=== PATIENT | male | born 1960 | race Caucasian/White ===

== ENCOUNTER 2017-03-07 02:43 | Inpatient (IN) ==
[2017-03-07] MEDS ORDERED: 0.9 % Sodium Chloride 1,000 ML IVC ONE (02:47)
--- NOTE | 2017-03-07 02:48 | Emergency Department Note ---
Disposition Clinical Impression: Fracture of ribs, multiple, closed, Hypoxia Disposition: Admitted As Inpatient Condition: Undetermined General Adult HPI - General Chief complaint: ED Trauma Stated complaint: trama/right rib fx/abd tender to palp Time Seen by Provider: 03/07/17 02:46 - Related Data Allergies Allergy/AdvReac Type Severity Reaction Status Date / Time No Known Allergies Allergy Verified 03/07/17 03:22 Course Vital Signs Temperature 98.7 F 03/07/17 03:00 Pulse Rate 119 03/07/17 03:00 Respiratory Rate 28 03/07/17 03:00 Blood Pressure 126/93 03/07/17 03:00 O2 Sat by Pulse Oximetry 94 03/07/17 03:00 Temperature 98.7 F 03/07/17 03:00 Pulse Rate 119 03/07/17 03:00 Respiratory Rate 28 03/07/17 03:00 Blood Pressure 126/93 03/07/17 03:00 O2 Sat by Pulse Oximetry 94 03/07/17 03:00 Oxygen Delivery Oxygen Delivery Nasal Cannula Medical Decision Making - Lab Data Result diagrams: 03/07/17 03:09 03/07/17 03:09 Lab Results 03/07/17 03/07/17 Range/Units 03:09 03:09 WBC 9.6 (4.3-11.1) K/mcL RBC 5.18 (4.19-5.50) M/mcL Hgb 14.9 (12.9-16.9) g/dL Hct 45.1 (37.5-50.1) % MCV 87.1 (83.0-100.0) fL MCH 28.8 (28.0-33.3) pg MCHC 33.0 (31.6-35.5) g/dL RDW 14.0 (11.5-14.5) % Plt Count 209 (140-400) K/mcL MPV 10.5 (9.4-12.4) fL Immature Gran % 0.6 (0-4) % Seg Neutrophils % 71.1 % Lymphocytes % 16.2 % Monocytes % 9.3 % Eosinophils % 2.4 % Basophils % 0.4 % Neutrophils # 6.8 (1.6-8.9) K/mcL Lymphocytes # 1.6 (0.6-4.6) K/mcL Monocytes # 0.9 (0.0-1.3) K/mcL Eosinophils # 0.2 (0.0-0.6) K/mcL Basophils # 0.0 (0.0-0.2) K/mcL Sodium 137 (136-145) mEq/L Potassium 3.9 (3.5-4.5) mEq/L Chloride 105 (98-109) mEq/L Carbon Dioxide 23 (19-29) mEq/L BUN 16 (8-26) mg/dL Creatinine 0.93 (0.72-1.25) mg/dL Est GFR ( Amer) > 60 (> 60) Est GFR (Non-Af Amer) > 60 (> 60) BUN/Creatinine Ratio 17 (6-26) Glucose 121 H (70-99) mg/dL Calculated Osmolality 286 (280-300) Calcium 9.0 (8.6-10.8) mg/dL Critical Care Time Critical Care Time: Yes Total Critical Care Time: 30 Attestation: Patient presented hypoxic with chest wall pain. When he ambulated his pulse ox dropped to 74% requiring supplemental oxygen. Attestation Statement - Attestation Attestation: I examined this patient and my medical decision-making was reviewed with the [facility]/PA/Advanced Practice Nurse/Resident Physician. I agree with the documented findings, disposition and treatment plan as described except to the extent set forth below. [id number] time provided Patient presents by EMS with chest wall pain and dyspnea. He was recently diagnosed with rib fractures secondary to a blunt torso injury. Plan of care and management discussed by me with resident physician
--- NOTE | 2017-03-07 02:53 | Emergency Department Note ---
Disposition Clinical Impression: Hypoxia Fracture of ribs, multiple, closed Qualifiers: Encounter type: subsequent encounter Laterality: right Fracture healing: with routine healing Qualified Code(s): S22.41XD - Multiple fractures of ribs, right side, subsequent encounter for fracture with routine healing Disposition: Admitted As Inpatient Condition: Undetermined Forms: ED Satisfaction Letter Time of Disposition: 04:49 Trauma HPI - General Chief Complaint: ED Trauma Stated Complaint: trama/right rib fx/abd tender to palp Time Seen by Provider: 03/07/17 02:46 Source: patient Mode of arrival: EMS Limitations: no limitations Nursing Notes Reviewed: Yes Vital Signs Reviewed: Yes - History of Present Illness HPI Narrative: 56-year-old male who was recently patent against a trailer by a horse with injury to torso 2 days ago who went to outside emergency department and diagnosed with right-sided rib fractures arrives to the emergency department this evening complaining of worsening difficulty breathing, chest pain, abdominal pain with stanchion compared to normal. The patient states that when EMS arrived he was mildly hypoxic with an O2 sat of 86%. He states that the pain has worsened despite taking Percocet. The patient denies any other complaints at this time including paresthesias, numbness, tingling, neck pain, headaches. Pt Subjective Complaint: injury Onset (ago): day(s) (2) Loss of Consciousness: no Location of injury: chest, abdomen Pain Severity: moderate Pain Scale: 8 Context: other (Pinned by horse) Associated symptoms: Reports: abdominal pain, shortness of breath Treatments prior to arrival: IV, oxygen - Related Data Allergies Allergy/AdvReac Type Severity Reaction Status Date / Time No Known Allergies Allergy Verified 03/07/17 03:22 All systems ED: reviewed and negative except as stated. Constitutional: Denies: fever, chills, weakness, weight change Eyes: Reports: as per HPI ENT ED: Denies: ear pain, throat pain, dental pain, hearing loss, epistaxis, congestion, dysphagia Cardiovascular: Reports: chest pain. Denies: palpitations, dyspnea on exertion , orthopnea Respiratory: Reports: dyspnea. Denies: cough, wheezes, hemoptysis, stridor Gastrointestinal: Reports: abdominal pain. Denies: nausea, vomiting, diarrhea, constipation, hematemesis, melena, hematochezia Genitourinary: Denies: urgency, dysuria, frequency, hematuria Musculoskeletal: Reports: back pain, arthralgia. Denies: neck pain, myalgia Integumentary: Denies: rash, abrasion, lesions Neurological: Denies: headache, weakness, numbness, paresthesias, confusion, abnormal gait, vertigo Past Medical History - Past Medical History Attestation: Yes The following information was validated with the patient. Source: patient Medical history: Reports: no medical history Surgical history: Reports: no surgical history Psychiatric history: Reports: no psych history - Social History Smoking Status: Smoker, status unknown Alcohol use: Reports: none Drug use: Reports: none Physical Exam - General Limitations: no limitations General appearance: alert, other (In severe pain) - Eye Eye exam: Present: normal appearance, PERRL, EOMI - ENT ENT exam: normal exam, normal oropharynx, mucous membranes moist - Neck Neck exam: Present: normal inspection, full ROM, trachea midline - Chest Chest inspection: Present: normal inspection, symmetric chest wall rise, tenderness (Right chest wall) - Respiratory Respiratory exam: Present: other (Right sided diminished breath sounds) - Cardiovascular Cardiovascular exam: Present: regular rate, normal rhythm, normal heart sounds - Abdominal Exam Abdominal exam: Present: tenderness, distention, diminished bowel sounds. Absent: guarding, rebound, rigidity - Extremities Exam Extremities exam: Present: normal inspection, full ROM. Absent: tenderness, pedal edema - Back Exam Back exam: Present: normal inspection, full ROM. Absent: tenderness - Neurological Exam Neurological exam: Present: alert, oriented X3 - Skin Skin exam: Present: warm, dry, intact, normal color Trauma - [facility] Narrative Medical decision making narrative: Patient workup here in the emergency department demonstrates redemonstration of right-sided rib fractures. The patient has no other acute injuries noted. Upon ambulation around the emergency department the patient was symptomatically having difficulty breathing and was at 93% on room air. Upon sitting down on the bed the patient dropped to 74%. The patient was also having difficulties controlling his pain. Patient accepted by hospitalist. Patient agrees to plan. - Lab Data Lab results reviewed: Yes I reviewed the patient's lab results. Result diagrams: 03/07/17 03:09 03/07/17 03:09 Lab Results 03/07/17 03/07/17 Range/Units 03:09 03:09 WBC 9.6 (4.3-11.1) K/mcL RBC 5.18 (4.19-5.50) M/mcL Hgb 14.9 (12.9-16.9) g/dL Hct 45.1 (37.5-50.1) % MCV 87.1 (83.0-100.0) fL MCH 28.8 (28.0-33.3) pg MCHC 33.0 (31.6-35.5) g/dL RDW 14.0 (11.5-14.5) % Plt Count 209 (140-400) K/mcL MPV 10.5 (9.4-12.4) fL Immature Gran % 0.6 (0-4) % Seg Neutrophils % 71.1 % Lymphocytes % 16.2 % Monocytes % 9.3 % Eosinophils % 2.4 % Basophils % 0.4 % Neutrophils # 6.8 (1.6-8.9) K/mcL Lymphocytes # 1.6 (0.6-4.6) K/mcL Monocytes # 0.9 (0.0-1.3) K/mcL Eosinophils # 0.2 (0.0-0.6) K/mcL Basophils # 0.0 (0.0-0.2) K/mcL Sodium 137 (136-145) mEq/L Potassium 3.9 (3.5-4.5) mEq/L Chloride 105 (98-109) mEq/L Carbon Dioxide 23 (19-29) mEq/L BUN 16 (8-26) mg/dL Creatinine 0.93 (0.72-1.25) mg/dL Est GFR ( Amer) > 60 (> 60) Est GFR (Non-Af Amer) > 60 (> 60) BUN/Creatinine Ratio 17 (6-26) Glucose 121 H (70-99) mg/dL Calculated Osmolality 286 (280-300) Calcium 9.0 (8.6-10.8) mg/dL - Radiology Data Radiology results reviewed: Yes I reviewed the patient's radiology results.
[2017-03-07] MEDS: *HR* HYDROmorphone (PF) 1 MG/ML SYRINGE IVP ONE (03:01)
[2017-03-07 03:15] LABS: Basophils % 0.4 %; Eosinophils # 0.2 K/mcL (0.0-0.6); Eosinophils % 2.4 %; Hematocrit 45.1 % (37.5-50.1); Hemoglobin 14.9 g/dL (12.9-16.9); Immature Granulocytes % 0.6 % (0-4); Lymphocytes # 1.6 K/mcL (0.6-4.6); Lymphocytes % 16.2 %; Mean Corpuscular Hemoglobin 28.8 pg (28.0-33.3); Mean Corpuscular Volume 87.1 fL (83.0-100.0); Mean Platelet Volume 10.5 fL (9.4-12.4); Monocytes # 0.9 K/mcL (0.0-1.3); Monocytes % 9.3 %; Neutrophils # 6.8 K/mcL (1.6-8.9); Platelet Count 209 K/mcL (140-400); Red Blood Count 5.18 M/mcL (4.19-5.50); Segmented Neutrophils % 71.1 %
[2017-03-07 03:27] LABS: BUN/Creatinine Ratio 17 (6-26); Blood Urea Nitrogen 16 mg/dL (8-26); Carbon Dioxide 23 mEq/L (19-29); Chloride 105 mEq/L (98-109); Glucose 121 mg/dL (70-99); Osmolality,Calculated 286 (280-300); Potassium 3.9 mEq/L (3.5-4.5); Sodium 137 mEq/L (136-145); eGFR For African Americans > 60 (> 60); eGFR For Non-African Americans > 60 (> 60)
[2017-03-07] MEDS ORDERED: *HR* LORazepam 2 MG/ML VIAL IVP ONE (04:46)
[2017-03-07] MEDS ORDERED: Acetaminophen 325 MG TABLET PO PRN (07:36)
[2017-03-07] MEDS ORDERED: Ondansetron 4 MG/2 ML VIAL IVP PRN (07:36)
[2017-03-07] MEDS ORDERED: Naloxone 0.4 MG/ML INJ IVP PRN (07:36)
[2017-03-07] MEDS ORDERED: Levalbuterol Neb 0.63 MG/3 ML IH PRN (07:41)
--- NOTE | 2017-03-07 07:55 | Internal Med History&Physical ---
Date of Encounter: 03/07/17 Time of Encounter: 07:30 Assessment and Plan (1) Fracture of ribs, multiple, closed Current visit: Yes Status: Acute Patient had an injury to his chest 3 days ago. He was working on a horse trailer when the horse stepped backwards, hit him and pushed him against the trailer. He immediately felt a very severe chest pain and went to the ED. He was found to have right-sided rib fractures and sent home on Percocet. His chest pain did not improve with Percocet and was so severe that he came to our ED. CT chest showed multiple acute bilateral rib fractures without pneumothorax , subtle fat stranding of the anterior mediastinal fat, could be venous hemorrhage. Patient is complaining of severe right-sided chest pain anytime he moves and mild left-sided chest pain. mild shortness of breath. no cough. no abdominal pain. no urinary complains. no headache. no dizziness. no syncope. Continue pain control with IV morphine, and flexeril. Qualifiers: Encounter type: subsequent encounter Laterality: right Fracture healing: with routine healing Qualified Code(s): S22.41XD - Multiple fractures of ribs , right side, subsequent encounter for fracture with routine healing (2) Hypoxia Current visit: Yes Status: Acute secondary to poor inspiratory effort due to severe pain. start duonebs, budesonide and mucinex. wean off oxygen to keep SaO2 >92% (3) COPD (chronic obstructive pulmonary disease) Current visit: Yes Status: Chronic plan as above Qualifiers: COPD type: chronic bronchitis Chronic bronchitis type: simple Qualified Code(s): J41.0 - Simple chronic bronchitis (4) HTN (hypertension) Current visit: Yes Status: Acute pain control. resume home meds Qualifiers: Hypertension type: essential hypertension Qualified Code(s): I10 - Essential (primary) hypertension Internal Medicine - H&P: HPI Chief complaint: severe chest pain for 3 days Admitted From: Home Plans for Post Hospital Care: Home History of present illness: Mr. 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 Patient was working on a horse trailer when the horse stepped backwards, hit him and pushed him against the trailer. He immediately felt a very severe chest pain and went to the ED, he was found to have right-sided rib fractures and sent home on Percocet. His chest pain did not improve with Percocet and was so severe that he came to our ED. CT chest showed multiple acute bilateral rib fractures without pneumothorax, subtle fat stranding of the anterior mediastinal fat, could be venous hemorrhage. Patient is complaining of severe right-sided chest pain anytime he moves and mild left-sided chest pain. mild shortness of breath. no cough. no abdominal pain. no urinary complains. no headache. no dizziness. no syncope. Past Med Surg Social Fam HX - Past Medical History Medical history: no medical history Psychiatric history: no psych history - Past Surgical History Surgical History: no surgical history - Social History Smoking Status: Smoker, status unknown Smokeless Tobacco Status: No Alcohol use: none Drug use: none - Family History Father Hx Family Cardiac Disorders: Yes (htn) Internal Medicine - H&P: Meds Allergies No Known Allergies Allergy (Verified 03/07/17 03:22) All Systems PM: A 10-system review of systems was performed and is negative for pertinent findings except as documented above in the HPI. - Constitutional Vitals: Temp Pulse Resp BP Pulse Ox 98.1 F 105 16 159/91 96 03/07/17 07:32 03/07/17 07:32 03/07/17 07:32 03/07/17 07:32 03/07/17 07:32 General appearance: Present: cooperative, A&O X 3, pleasant, no acute distress, answers questions appropriately - Neck Neck exam general surgery: Present: supple, trachea midline. Absent: lymphadenopathy - Respiratory Respiratory exam: Present: decreased breath sounds (at bases), wheezes (at right sided bases) Additional comments: tenderness to palpation at left upper chest area and right sided chest site - Cardiovascular Cardiovascular exam: Present: RRR - GI/Abdominal GI/Abdominal exam: Present: normal bowel sounds, soft. Absent: distended, tenderness - Extremities Exam Extremities exam: Absent: pedal edema - Back Exam Back exam: Absent: CVA tenderness (L), CVA tenderness (R) - Neurological Exam Neurological exam: Present: alert, oriented X3, no focal deficits, strengths equal and symetr throughout. Absent: facial droop, speech deficit - Skin Skin exam: Absent: rash Internal Med - H&P Results - Labs CBC & Chem 7: 03/07/17 03:09 03/07/17 03:09
[2017-03-07] MEDS: *HR* Morphine 2 MG/ML SYRINGE IVP PRN ×3 (08:52→17:40)
[2017-03-07] MEDS ORDERED: Albuterol 2.5 MG/3 ML NEBULIZER IH PRN (09:00)
[2017-03-07] MEDS: Nicotine 7 MG PATCH.TD24 TD SCH (10:08)
[2017-03-07] MEDS: *HR* HYDROcodone/Acet 5/325 mg TABLET PO PRN ×2 (10:09→15:28)
[2017-03-07] MEDS: Budesonide Neb 0.25 MG/2 ML IH SCH ×2 (11:23→22:38)
[2017-03-07] MEDS: Ipratropium/Albuterol Neb 3 ML IH SCH ×3 (11:23→22:38)
[2017-03-07] MEDS ORDERED: Perflutren Lipid Microsphere 1.3 ML in 0.9 % Sodium Chloride 8.7 ML IVP ONE (19:21)
[2017-03-07] MEDS: *HR* HYDROmorphone (PF) 1 MG/ML SYRINGE IVP PRN ×2 (21:07→23:43)
[2017-03-08] MEDS: *HR* HYDROmorphone (PF) 1 MG/ML SYRINGE IVP PRN ×4 (03:48→20:28)
[2017-03-08] MEDS: Ipratropium/Albuterol Neb 3 ML IH SCH ×2 (04:05→10:22)
[2017-03-08 06:25] LABS: Basophils % 0.4 %; Eosinophils # 0.2 K/mcL (0.0-0.6); Eosinophils % 2.7 %; Hematocrit 43.2 % (37.5-50.1); Hemoglobin 14.4 g/dL (12.9-16.9); Immature Granulocytes % 0.9 % (0-4); Immature Platelets 5.8 % (1.1-6.1); Lymphocytes # 1.5 K/mcL (0.6-4.6); Lymphocytes % 19.7 %; Mean Corpuscular HGB Conc 33.3 g/dL (31.6-35.5); Mean Corpuscular Hemoglobin 28.6 pg (28.0-33.3); Mean Corpuscular Volume 85.9 fL (83.0-100.0); Mean Platelet Volume 10.4 fL (9.4-12.4); Monocytes # 0.6 K/mcL (0.0-1.3); Monocytes % 8.2 %; Neutrophils # 5.3 K/mcL (1.6-8.9); Platelet Count 209 K/mcL (140-400); Red Blood Count 5.03 M/mcL (4.19-5.50); Red Cell Distribution Width 13.8 % (11.5-14.5); Segmented Neutrophils % 68.1 %
[2017-03-08 06:29] LABS: INR 1.1; Prothrombin Time 11.7 Seconds (9.4-12.1)
[2017-03-08 06:32] LABS: Activated Partial Thrombo Time 30.5 Seconds (26.0-36.0)
[2017-03-08 06:48] LABS: BUN/Creatinine Ratio 12 (6-26); Blood Urea Nitrogen 10 mg/dL (8-26); Calcium 9.1 mg/dL (8.6-10.8); Carbon Dioxide 23 mEq/L (19-29); Chloride 102 mEq/L (98-109); Glucose 112 mg/dL (70-99); Magnesium 1.6 mg/dL (1.6-2.6); Osmolality,Calculated 276 (280-300); Phosphorous 3.5 mg/dL (2.3-4.7); Sodium 133 mEq/L (136-145); eGFR For African Americans > 60 (> 60); eGFR For Non-African Americans > 60 (> 60)
[2017-03-08] MEDS: Nicotine 7 MG PATCH.TD24 TD SCH (07:54)
[2017-03-08] MEDS ORDERED: Furosemide 40 MG/4 ML VIAL IVP ONE (08:55)
--- NOTE | 2017-03-08 09:01 | Internal Med Progress Note ---
Date of Encounter: 03/08/17 Time of Encounter: 08:30 - Assessment and plan (1) Fracture of ribs, multiple, closed Current Visit: Yes Status: Acute Assessment and plan: Patient had an injury to his chest on 03/04. He was working on a horse trailer when the horse stepped backwards, hit him and pushed him against the trailer. He immediately felt a very severe chest pain and went to the ED. He was found to have right-sided rib fractures and sent home on Percocet. His chest pain did not improve with Percocet and was so severe that he came to our ED. CT chest showed multiple acute bilateral rib fractures without pneumothorax, subtle fat stranding of the anterior mediastinal fat, could be venous hemorrhage. 03/08: Still complaining of severe right-sided chest pain anytime he moves. mild shortness of breath. requiring IV dilaudid. Add morphine SR. stop norco. add oxycodone. continue flexeril. Qualifiers: Encounter type: subsequent encounter Laterality: right Fracture healing: with routine healing Qualified Code(s): S22.41XD - Multiple fractures of ribs , right side, subsequent encounter for fracture with routine healing (2) Acute respiratory failure with hypoxia Current Visit: Yes Status: Acute Assessment and plan: secondary to poor inspiratory effort due to severe pain. requiring 3L NC. nebs. oxygen supplementation. better control of pain. (3) COPD (chronic obstructive pulmonary disease) Current Visit: Yes Status: Chronic Assessment and plan: nebs Qualifiers: COPD type: chronic bronchitis Chronic bronchitis type: simple Qualified Code(s): J41.0 - Simple chronic bronchitis (4) HTN (hypertension) Current Visit: Yes Status: Chronic Assessment and plan: BP better controlled. Qualifiers: Hypertension type: essential hypertension Qualified Code(s): I10 - Essential (primary) hypertension - Subjective Interval history: right-sided chest pain has not changed in intensity, dilaudid is helping with pain. - Constitutional Vitals: Temp Pulse Resp BP Pulse Ox 97.7 F 102 15 143/83 88 03/08/17 07:42 03/08/17 07:42 03/08/17 07:42 03/08/17 07:42 03/08/17 08:51 General appearance: Present: cooperative, A&O X 3, pleasant, no acute distress, answers questions appropriately - Neck Neck exam general surgery: Present: supple, trachea midline. Absent: lymphadenopathy - Respiratory Respiratory exam: Present: decreased breath sounds (at the bases), rhonchi - Cardiovascular Cardiovascular exam: Present: RRR - GI/Abdominal GI/Abdominal exam: Present: normal bowel sounds, soft. Absent: distended, tenderness - Extremities Exam Extremities exam: Present: pedal edema (1+ Le edema up to the knees) - Back Exam Back exam: Absent: CVA tenderness (L), CVA tenderness (R) - Neurological Exam Neurological exam: Present: alert, oriented X3, no focal deficits, strengths equal and symetr throughout. Absent: pronater drift, facial droop, speech deficit - Skin Skin exam: Absent: rash Internal Medicine: Result - Labs CBC & Chem 7: 03/08/17 06:11 03/08/17 06:11 Labs: Short CBC 03/08/17 Range/Units 06:11 WBC 7.7 (4.3-11.1) K/mcL Hgb 14.4 (12.9-16.9) g/dL Hct 43.2 (37.5-50.1) % Plt Count 209 (140-400) K/mcL Neutrophils # 5.3 (1.6-8.9) K/mcL BMP 03/08/17 06:11 Sodium 133 L Potassium 4.0 Chloride 102 Carbon Dioxide 23 BUN 10 Creatinine 0.84 Glucose 112 H Calcium 9.1 - ABG Interpretation ABG results: PT/INR, D-dimer PT 11.7 Seconds (9.4-12.1) 03/08/17 06:11 Consult Discharge Plan - Plan Referrals: Mauro Shrestha MD [Primary Care Provider] -
[2017-03-08] MEDS: Budesonide Neb 0.25 MG/2 ML IH SCH ×2 (10:22→22:31)
[2017-03-08] MEDS: *HR* HYDROcodone/Acet 5/325 mg TABLET PO PRN (13:54)
[2017-03-08] MEDS ORDERED: *HR* HYDROmorphone (PF) 1 MG/ML SYRINGE IVP ONE (14:13)
[2017-03-08] MEDS ORDERED: *HR* Metoprolol 5 MG/5 ML VIAL IVP ONE ×2 (14:14→14:15)
[2017-03-08] MEDS: *HR* HYDROmorphone (PF) 1 MG/ML SYRINGE IVP ONE (14:15)
[2017-03-08] MEDS ORDERED: Levalbuterol Neb 0.63 MG/3 ML IH PRN (14:24)
--- NOTE | 2017-03-08 14:46 | Event Note ---
Date of Encounter: 03/08/17 Time of Encounter: 14:41 Critical care time first hour- time spent 30 min Called by nurse because of tachycardia. Patient states he went to the bathroom and he has severe shooting pain at his right chest. mild shortness of breath. stat EKG showed sinus tachcyardia HR 126. BP 141/97. chest decrease air entry in right base. heart is regular, tachycardic. Given stat IV dilaudid 1 mg, 2.5 mg IV lopressor. A/p 1. pain secondary to rib fracture. 2. sinus tachycardia due to pain. echo shows LVEF 55-65%, normal pericardium. - stop albuterol nebs. start Xopenex nebs. - add lopressor - add morphine SR and oxycodone prn
[2017-03-08] MEDS: Ipratropium Neb 0.5 MG NEBULIZER IH SCH ×2 (15:42→22:31)
[2017-03-08] MEDS: Levalbuterol Neb 0.63 MG/3 ML IH SCH ×2 (15:42→22:31)
[2017-03-08] MEDS: *HR* Morphine Sulfate SR (12 HR) 15 MG TABLET.ER PO SCH ×2 (16:02→16:15)
[2017-03-08] MEDS: *HR* Heparin 5,000 UNIT/ML VIAL SQ SCH ×2 (16:02→16:14)
[2017-03-08] MEDS: *HR* OxyCODONE Immed Rel 5 MG TABLET PO PRN (17:16)
[2017-03-09] MEDS: *HR* OxyCODONE Immed Rel 5 MG TABLET PO PRN ×2 (00:08→23:07)
[2017-03-09] MEDS: Ipratropium Neb 0.5 MG NEBULIZER IH SCH ×4 (04:10→22:44)
[2017-03-09] MEDS: Levalbuterol Neb 0.63 MG/3 ML IH SCH ×4 (04:10→22:44)
[2017-03-09] MEDS: *HR* HYDROmorphone (PF) 1 MG/ML SYRINGE IVP PRN ×4 (04:24→20:45)
[2017-03-09 05:47] LABS: Basophils % 0.5 %; Eosinophils # 0.3 K/mcL (0.0-0.6); Eosinophils % 3.9 %; Hematocrit 44.5 % (37.5-50.1); Hemoglobin 14.7 g/dL (12.9-16.9); Immature Granulocytes % 0.7 % (0-4); Lymphocytes # 1.5 K/mcL (0.6-4.6); Lymphocytes % 19.5 %; Mean Corpuscular Volume 87.8 fL (83.0-100.0); Monocytes # 0.6 K/mcL (0.0-1.3); Monocytes % 8.4 %; Neutrophils # 5.1 K/mcL (1.6-8.9); Platelet Count 212 K/mcL (140-400); Red Blood Count 5.07 M/mcL (4.19-5.50); Red Cell Distribution Width 13.8 % (11.5-14.5)
[2017-03-09] MEDS ORDERED: *HR* Enoxaparin 40 MG/0.4 ML SYRINGE SQ SCH (06:00)
[2017-03-09 06:07] LABS: BUN/Creatinine Ratio 14 (6-26); Blood Urea Nitrogen 13 mg/dL (8-26); Calcium 9.3 mg/dL (8.6-10.8); Carbon Dioxide 26 mEq/L (19-29); Chloride 100 mEq/L (98-109); Glucose 103 mg/dL (70-99); Magnesium 1.7 mg/dL (1.6-2.6); Osmolality,Calculated 280 (280-300); Potassium 3.9 mEq/L (3.5-4.5); Sodium 135 mEq/L (136-145); eGFR For African Americans > 60 (> 60); eGFR For Non-African Americans > 60 (> 60)
[2017-03-09] MEDS: *HR* Heparin 5,000 UNIT/ML VIAL SQ SCH ×2 (06:53→18:28)
[2017-03-09] MEDS: *HR* Morphine Sulfate SR (12 HR) 15 MG TABLET.ER PO SCH ×2 (06:54→18:29)
[2017-03-09] MEDS: Nicotine 7 MG PATCH.TD24 TD SCH (08:16)
[2017-03-09] MEDS: Budesonide Neb 0.25 MG/2 ML IH SCH ×2 (08:59→22:44)
--- NOTE | 2017-03-09 21:53 | Internal Med Progress Note ---
Date of Encounter: 03/09/17 Time of Encounter: 13:45 - Assessment and plan (1) Fracture of ribs, multiple, closed Current Visit: Yes Status: Acute Assessment and plan: Patient had an injury to his chest on 03/04. He was working on a horse trailer when the horse stepped backwards, hit him and pushed him against the trailer. He immediately felt a very severe chest pain and went to the ED. He was found to have right-sided rib fractures and sent home on Percocet. His chest pain did not improve with Percocet and was so severe that he came to our ED. CT chest showed multiple acute bilateral rib fractures without pneumothorax, subtle fat stranding of the anterior mediastinal fat, could be venous hemorrhage. 03/09: right-sided chest pain has improved slighly, mild shortness of breath. requiring IV dilaudid. continue morphine SR, oxycodone and flexeril. Qualifiers: Encounter type: subsequent encounter Laterality: right Fracture healing: with routine healing Qualified Code(s): S22.41XD - Multiple fractures of ribs , right side, subsequent encounter for fracture with routine healing (2) Acute respiratory failure with hypoxia Current Visit: Yes Status: Acute Assessment and plan: secondary to poor inspiratory effort due to severe pain. requiring 3L NC. unable to ambulate without oxygen supplementation. continue nebs, better control of pain and incentive spirometer. (3) COPD (chronic obstructive pulmonary disease) Current Visit: Yes Status: Chronic Assessment and plan: nebs. Qualifiers: COPD type: chronic bronchitis Chronic bronchitis type: simple Qualified Code(s): J41.0 - Simple chronic bronchitis (4) HTN (hypertension) Current Visit: Yes Status: Chronic Assessment and plan: BP is better controlled. Qualifiers: Hypertension type: essential hypertension Qualified Code(s): I10 - Essential (primary) hypertension - Subjective Interval history: right-sided chest pain has improved mildly, dilaudid is helping with pain. - Constitutional Vitals: Temp Pulse Resp BP Pulse Ox 97.8 F 110 16 105/75 93 03/09/17 18:36 03/09/17 18:36 03/09/17 18:36 03/09/17 18:36 03/09/17 18:36 General appearance: Present: cooperative, A&O X 3, pleasant, no acute distress, answers questions appropriately - Neck Neck exam general surgery: Present: lymphadenopathy, supple, trachea midline - Respiratory Respiratory exam: Present: decreased breath sounds (at lung bases) - Cardiovascular Cardiovascular exam: Present: RRR - GI/Abdominal GI/Abdominal exam: Present: normal bowel sounds, soft. Absent: distended, tenderness - Extremities Exam Extremities exam: Present: pedal edema - Back Exam Back exam: Absent: CVA tenderness (L), CVA tenderness (R) - Neurological Exam Neurological exam: Present: alert, normal gait, oriented X3, no focal deficits, strengths equal and symetr throughout. Absent: pronater drift, facial droop, speech deficit - Skin Skin exam: Absent: rash Internal Medicine: Result - Labs CBC & Chem 7: 03/09/17 05:12 03/09/17 05:12 Labs: Short CBC 03/09/17 Range/Units 05:12 WBC 7.6 (4.3-11.1) K/mcL Hgb 14.7 (12.9-16.9) g/dL Hct 44.5 (37.5-50.1) % Plt Count 212 (140-400) K/mcL Neutrophils # 5.1 (1.6-8.9) K/mcL BMP 03/09/17 05:12 Sodium 135 L Potassium 3.9 Chloride 100 Carbon Dioxide 26 BUN 13 Creatinine 0.90 Glucose 103 H Calcium 9.3 - ABG Interpretation ABG results: PT/INR, D-dimer PT 11.7 Seconds (9.4-12.1) 03/08/17 06:11 Consult Discharge Plan - Plan Referrals: Mauro Shrestha MD [Primary Care Provider] -
[2017-03-10] MEDS: *HR* HYDROmorphone (PF) 1 MG/ML SYRINGE IVP PRN ×4 (02:31→23:01)
[2017-03-10] MEDS: Levalbuterol Neb 0.63 MG/3 ML IH SCH ×4 (04:39→22:15)
[2017-03-10] MEDS: Ipratropium Neb 0.5 MG NEBULIZER IH SCH ×4 (04:39→22:15)
[2017-03-10 04:53] LABS: Basophils # 0.1 K/mcL (0.0-0.2); Basophils % 0.8 %; Eosinophils # 0.3 K/mcL (0.0-0.6); Eosinophils % 4.7 %; Hematocrit 42.9 % (37.5-50.1); Hemoglobin 14.2 g/dL (12.9-16.9); Immature Granulocytes % 0.5 % (0-4); Lymphocytes # 1.8 K/mcL (0.6-4.6); Lymphocytes % 28.1 %; Mean Corpuscular HGB Conc 33.1 g/dL (31.6-35.5); Mean Corpuscular Hemoglobin 28.5 pg (28.0-33.3); Mean Platelet Volume 10.6 fL (9.4-12.4); Monocytes # 0.7 K/mcL (0.0-1.3); Monocytes % 10.2 %; Neutrophils # 3.6 K/mcL (1.6-8.9); Platelet Count 229 K/mcL (140-400); Red Blood Count 4.99 M/mcL (4.19-5.50); Red Cell Distribution Width 13.5 % (11.5-14.5); Segmented Neutrophils % 55.7 %
[2017-03-10 05:05] LABS: BUN/Creatinine Ratio 15 (6-26); Blood Urea Nitrogen 13 mg/dL (8-26); Calcium 9.4 mg/dL (8.6-10.8); Carbon Dioxide 25 mEq/L (19-29); Chloride 102 mEq/L (98-109); Glucose 100 mg/dL (70-99); Magnesium 1.8 mg/dL (1.6-2.6); Osmolality,Calculated 282 (280-300); Potassium 4.3 mEq/L (3.5-4.5); Sodium 136 mEq/L (136-145); eGFR For African Americans > 60 (> 60); eGFR For Non-African Americans > 60 (> 60)
[2017-03-10] MEDS: *HR* Morphine Sulfate SR (12 HR) 15 MG TABLET.ER PO SCH ×2 (06:12→20:47)
[2017-03-10] MEDS: *HR* Heparin 5,000 UNIT/ML VIAL SQ SCH ×2 (06:12→20:47)
[2017-03-10] MEDS: *HR* OxyCODONE Immed Rel 5 MG TABLET PO PRN (08:27)
[2017-03-10] MEDS: Nicotine 7 MG PATCH.TD24 TD SCH (08:27)
[2017-03-10] MEDS: Furosemide 40 MG TABLET PO SCH ×2 (09:56→16:09)
[2017-03-10] MEDS: Budesonide Neb 0.25 MG/2 ML IH SCH ×2 (11:01→22:15)
--- NOTE | 2017-03-10 11:56 | Internal Med Progress Note ---
Date of Encounter: 03/10/17 Time of Encounter: 08:00 - Assessment and plan (1) Fracture of ribs, multiple, closed Current Visit: Yes Status: Acute Assessment and plan: Patient had an injury to his chest on 03/04. He was working on a horse trailer when the horse stepped backwards, hit him and pushed him against the trailer. He immediately felt a very severe chest pain and went to the ED. He was found to have right-sided rib fractures and sent home on Percocet. His chest pain did not improve with Percocet and was so severe that he came to our ED. CT chest showed multiple acute bilateral rib fractures without pneumothorax, subtle fat stranding of the anterior mediastinal fat, could be venous hemorrhage. 03/10: slowly improving. right-sided chest pain has improved. he is still requiring oxygen at exertion and IV dilaudid. continue morphine SR, oxycodone and flexeril. check cxr Qualifiers: Encounter type: subsequent encounter Laterality: right Fracture healing: with routine healing Qualified Code(s): S22.41XD - Multiple fractures of ribs , right side, subsequent encounter for fracture with routine healing (2) Acute respiratory failure with hypoxia Current Visit: Yes Status: Acute Assessment and plan: secondary to poor inspiratory effort due to severe pain. requiring 3L NC. unable to ambulate without oxygen supplementation. continue nebs, better control of pain and incentive spirometer. (3) COPD (chronic obstructive pulmonary disease) Current Visit: Yes Status: Chronic Assessment and plan: nebs. Qualifiers: COPD type: chronic bronchitis Chronic bronchitis type: simple Qualified Code(s): J41.0 - Simple chronic bronchitis (4) HTN (hypertension) Current Visit: Yes Status: Chronic Assessment and plan: BP is better controlled. Qualifiers: Hypertension type: essential hypertension Qualified Code(s): I10 - Essential (primary) hypertension - Subjective Interval history: right-sided chest pain has improved, dilaudid is helping with pain. - Constitutional Vitals: Temp Pulse Resp BP Pulse Ox 97.9 F 87 18 117/82 91 03/10/17 10:56 03/10/17 10:56 03/10/17 11:01 03/10/17 10:56 03/10/17 11:01 General appearance: Present: cooperative, A&O X 3, pleasant, no acute distress, answers questions appropriately - Neck Neck exam general surgery: Absent: supple, trachea midline - Respiratory Respiratory exam: Present: CTAB - Cardiovascular Cardiovascular exam: Present: RRR - GI/Abdominal GI/Abdominal exam: Present: normal bowel sounds, soft. Absent: distended, tenderness - Extremities Exam Extremities exam: Present: pedal edema - Back Exam Back exam: Absent: CVA tenderness (L), CVA tenderness (R) - Neurological Exam Neurological exam: Present: alert, normal gait, oriented X3, no focal deficits, strengths equal and symetr throughout. Absent: facial droop, speech deficit - Skin Skin exam: Absent: rash Internal Medicine: Result - Labs CBC & Chem 7: 03/10/17 04:18 03/10/17 04:18 Labs: Short CBC 03/10/17 Range/Units 04:18 WBC 6.4 (4.3-11.1) K/mcL Hgb 14.2 (12.9-16.9) g/dL Hct 42.9 (37.5-50.1) % Plt Count 229 (140-400) K/mcL Neutrophils # 3.6 (1.6-8.9) K/mcL BMP 03/10/17 04:18 Sodium 136 Potassium 4.3 Chloride 102 Carbon Dioxide 25 BUN 13 Creatinine 0.86 Glucose 100 H Calcium 9.4 - ABG Interpretation ABG results: PT/INR, D-dimer PT 11.7 Seconds (9.4-12.1) 03/08/17 06:11 - Impressions Impressions Chest X-Ray 03/10/17 08:44 IMPRESSION: Mild bibasilar atelectasis with suggestion of small effusions. No pneumothorax. No significant displaced rib fracture identified. D/ / Aniket Silveira MD / Aniket Silveira MD Interpreting Provider: Aniket Silveira MD Consult Discharge Plan - Plan Referrals: Mauro Shrestha MD [Primary Care Provider] -
[2017-03-11] MEDS: *HR* HYDROmorphone (PF) 1 MG/ML SYRINGE IVP PRN (02:47)
[2017-03-11] MEDS: Ipratropium Neb 0.5 MG NEBULIZER IH SCH ×2 (04:50→09:33)
[2017-03-11] MEDS: Levalbuterol Neb 0.63 MG/3 ML IH SCH ×2 (04:50→09:33)
[2017-03-11] MEDS: *HR* Heparin 5,000 UNIT/ML VIAL SQ SCH (05:47)
[2017-03-11] MEDS: *HR* Morphine Sulfate SR (12 HR) 15 MG TABLET.ER PO SCH (05:47)
[2017-03-11 05:50] LABS: BUN/Creatinine Ratio 13 (6-26); Blood Urea Nitrogen 14 mg/dL (8-26); Calcium 9.5 mg/dL (8.6-10.8); Carbon Dioxide 28 mEq/L (19-29); Chloride 98 mEq/L (98-109); Glucose 106 mg/dL (70-99); Magnesium 1.8 mg/dL (1.6-2.6); Osmolality,Calculated 283 (280-300); Potassium 3.9 mEq/L (3.5-4.5); Sodium 136 mEq/L (136-145); eGFR For African Americans > 60 (> 60); eGFR For Non-African Americans > 60 (> 60)
[2017-03-11 07:01] VITALS: BP 142/93
--- NOTE | 2017-03-11 08:31 | Discharge Summary ---
Date of Encounter: 03/11/17 Time of Encounter: 08:29 - Discharge Diagnosis (1) Fracture of ribs, multiple, closed Priority: Primary Status: Acute Qualifiers: Encounter type: subsequent encounter Laterality: right Fracture healing: with routine healing Qualified Code(s): S22.41XD - Multiple fractures of ribs , right side, subsequent encounter for fracture with routine healing (2) Acute respiratory failure with hypoxia Priority: Primary Status: Acute (3) COPD (chronic obstructive pulmonary disease) Priority: Secondary Status: Chronic Qualifiers: COPD type: chronic bronchitis Chronic bronchitis type: simple Qualified Code(s): J41.0 - Simple chronic bronchitis (4) HTN (hypertension) Priority: Secondary Status: Chronic Qualifiers: Hypertension type: essential hypertension Qualified Code(s): I10 - Essential (primary) hypertension - Discharge Medications Prescriptions: Ipratropium Neb [Atrovent Neb] 0.5 mg IH [id number] #120 inhsol Levalbuterol Neb [Xopenex Neb] 0.63 mg IH [id number] #120 vial.neb OxyCODONE Immed Rel [Roxicodone 5 MG] 10 mg PO Q6HR PRN #30 tablet PRN Reason: Moderate Pain Morphine Sulfate SR (12 HR) [MS Contin] 15 mg PO Q12HR #30 tablet.er Cyclobenzaprine [Flexeril] 10 mg PO TID #90 tablet Furosemide [Lasix] 40 mg PO BIDDIURETIC #60 tablet GuaiFENesin ER [Mucinex] 600 mg PO BID #14 tbbp.12hr Metoprolol [Lopressor] 75 mg PO BID #90 tablet Nebulizer [Aeroeclipse] 1 each AD #1 each Nicotine Patch [Nicoderm] 7 mg TD DAILY #30 patch.td24 Home Medications: Cyclobenzaprine [Flexeril] 10 mg PO TID #90 tablet 03/11/17 [Rx] Furosemide [Lasix] 40 mg PO BIDDIURETIC #60 tablet 03/11/17 [Rx] GuaiFENesin ER [Mucinex] 600 mg PO BID #14 tbbp.12hr 03/11/17 [Rx] Ipratropium Neb [Atrovent Neb] 0.5 mg IH [id number] #120 inhsol 03/11/17 [Rx] Levalbuterol Neb [Xopenex Neb] 0.63 mg IH [id number] #120 vial.neb 03/11/17 [Rx] Metoprolol [Lopressor] 75 mg PO BID #90 tablet 03/11/17 [Rx] Morphine Sulfate SR (12 HR) [MS Contin] 15 mg PO Q12HR #30 tablet.er 03/11/17 [ Rx] Nebulizer [Aeroeclipse] 1 each MC AD #1 each 03/11/17 [Rx] Nicotine Patch [Nicoderm] 7 mg TD DAILY #30 patch.td24 03/11/17 [Rx] OxyCODONE Immed Rel [Roxicodone 5 MG] 10 mg PO Q6HR PRN #30 tablet 03/11/17 [Rx] Allergies/Adverse Reactions: Allergies No Known Allergies Allergy (Verified 03/07/17 03:22) Date of admission: 03/08/17 14:27 Primary care physician: Mauro Shrestha Consults: 03/08/17 14:54 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 [CONS] Routine Reason for SW Consult: Oxygen - Patient Status Disposition: Home, Self-Care Condition: Good Functional capacity at discharge: independent ambulation Overall status at discharge: patient is progressing back to baseline - Discharge Instructions Instructions: Metoprolol (By mouth), Furosemide (By mouth), Ipratropium (By breathing), Cyclobenzaprine (By mouth), Guaifenesin (By mouth), Oxycodone, Rapid Release (By mouth), Levalbuterol (By breathing), Morphine, Slow Release ( By mouth), Using Oxygen at Home (DC), How to Use a Nebulizer (DC) Follow Up With: Mauro Shrestha MD [Primary Care Provider] - 03/19/17 11:00 am Additional Instructions: check your blood pressure twice daily, write down numbers and bring record to doctor's appointment. follow up with a primary care doctor within 1 week - Diet and Activity Activity: other (no heavy activites for 1 week) Diet: low fat, low cholesterol, low salt diet, other Interval History: patient feels better, his chest pain and shortness of breath have improved. Hospital course: Mr. Trevino is a 56 year old male with past medical history of htn and COPD not oxygen dependent who had an injury to his chest 3 days prior to admission. He was working on a horse trailer when the horse stepped backwards, hit him and pushed him against the trailer. He immediately felt a severe chest pain and went to the ED, he was found to have right-sided rib fractures and sent home on Percocet. His chest pain did not improve with Percocet and it was so severe that he came to our ED. CT chest showed multiple acute bilateral rib fractures without pneumothorax, subtle fat stranding of the anterior mediastinal fat, could be venous hemorrhage. Since admission he required oxygen supplementation due to poor inspiratory effort. He received IV dilaudid, oxycodone, MS contin and flexeril for pain relief with slow improvement of symptoms. Repeat CXR showed mild bibasal atelectasis, effusion and rib fractures. Patient was noted to have bilateral LE edema, echo was of poor quality due to pain, it showed LVEF 60%, normal pericardium. he was started on lasix and encouraged to lower his salt intake at home. PLAN: oxygen. pain control. nebs. repeat echo as outpatient. f/u with pcp for PFT, HTN, weight loss program. - Time Spent with Patient Total time spent providing and/or coordinating discharge services: - Constitutional Vitals: Temp Pulse Resp BP Pulse Ox 97.7 F 96 14 142/93 94 03/11/17 07:00 03/11/17 07:00 03/11/17 07:00 03/11/17 07:00 03/11/17 07:00 General appearance: Present: cooperative, A&O X 3, pleasant, no acute distress, answers questions appropriately - Neck Neck exam general surgery: Present: supple, trachea midline. Absent: lymphadenopathy - Respiratory Respiratory exam: Present: CTAB - Cardiovascular Cardiovascular exam: Present: RRR - GI/Abdominal GI/Abdominal exam: Present: normal bowel sounds, soft. Absent: distended, tenderness - Extremities Exam Extremities exam: Present: pedal edema - Back Exam Back exam: Absent: CVA tenderness (L), CVA tenderness (R) - Neurological Exam Neurological exam: Present: alert, normal gait, oriented X3, no focal deficits, strengths equal and symetr throughout. Absent: facial droop, speech deficit
[2017-03-11] MEDS: Furosemide 40 MG TABLET PO SCH (09:04)
[2017-03-11] MEDS: Nicotine 7 MG PATCH.TD24 TD SCH (09:04)
[2017-03-11] MEDS: *HR* OxyCODONE Immed Rel 5 MG TABLET PO PRN (09:04)
[2017-03-11] MEDS: Budesonide Neb 0.25 MG/2 ML IH SCH (09:33)
--- NOTE | 2017-03-11 15:03 | Electrocardiograph Report ---
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
== END 2017-03-11 13:10 | disposition home or self-care (01) | DRG 135 ==
LOC: EMEROO 02:43 → 3BNU 02:43 → SUATTDRO 05:47 → 3BNU 06:33
PROVIDERS: ADMIT Nurse Practitioner Family; ATTEND Internal Medicine

== ENCOUNTER 2021-01-25 18:46 | Inpatient (IN) ==
[~2021-01-25 18:46] MED LIST: *HR* EPINEPHrine 1 MG/10 ML SYRINGE IVP ONE; EPINEPHrine 1 MG/ML VIAL IV ONE; Norepinephrine 4 MG/254 ML 0.9% NaCL IVC ONE
[2021-01-25] MEDS ORDERED: 0.9 % Sodium Chloride 1,000 ML ONE ×2 (19:04→19:51)
[2021-01-25] MEDS ORDERED: 0.9 % Sodium Chloride 250 ML ONE (19:08)
[2021-01-25] MEDS ORDERED: 0.9 % Sodium Chloride 1,000 ML IVC ONE ×2 (19:13→19:48)
[2021-01-25] MEDS ORDERED: EPINEPHrine 1 MG in D5% in Water 250 ML IVC SCH (19:15)
[2021-01-25] MEDS ORDERED: Norepinephrine 4 MG/254 ML IV.SOLN IVC SCH (19:15)
[2021-01-25 19:22] LABS: Hematocrit 50.1 % (37.5-50.1); Hemoglobin 14.6 g/dL (12.9-16.9); Mean Corpuscular HGB Conc 29.1 g/dL (31.6-35.5); Mean Corpuscular Hemoglobin 30.1 pg (28.0-33.3); Mean Corpuscular Volume 103.3 fL (83.0-100.0); Mean Platelet Volume 11.2 fL (9.4-12.4); Neutrophils # 2.6 K/mcL (1.6-8.9); Nucleated Red Blood Cells 1.9 /100 WBC (0); Platelet Count 155 K/mcL (140-400); Red Blood Count 4.85 M/mcL (4.19-5.50); Red Cell Distribution Width 14.1 % (11.5-14.5); White Blood Count 6.4 K/mcL (4.3-11.1)
[2021-01-25] MEDS ORDERED: Vasopressin 40 UNIT in D5% in Water 100 ML IVC SCH (19:24)
[2021-01-25] MEDS ORDERED: D5% in Water 100 ML ONE (19:32)
[2021-01-25] MEDS ORDERED: *HR* Vasopressin 20 UNIT/ML VIAL ONE (19:32)
[2021-01-25 19:37] LABS: Bacteria,Urine Few per hpf (None-Few); Bilirubin,Urine Negative (Negative); Blood,Urine Small (Negative); Clarity,Urine Clear (Clear); Color,Urine Yellow (Yellow); Glucose,Urine (UA) Normal (Normal); Hyaline Casts,Urine Few per lpf (None Seen); Ketones,Urine Negative (Negative); Leukocyte Esterase,Urine Negative (Negative); Mucus,Urine Few per lpf (None-Few); Nitrite,Urine Negative (Negative); PH,Urine 5.5 pH Units (5.0-8.0); Protein,Urine Trace mg/dL (Neg-Trace); Specific Gravity,Urine 1.019 (1.010-1.025); Squamous Epithelial Cell,Urine Few per hpf (None-Few)
[2021-01-25 19:37] LABS: Lymphocytes # 3.2 K/mcL (0.6-4.6); Monocytes # 0.6 K/mcL (0.0-1.3); Platelet Estimate Normal (Normal); Reactive Lymphocytes Present (Not Present)
[2021-01-25 19:52] LABS: Albumin 3.4 g/dL (3.5-5.7); Albumin/Globulin Ratio 1.6 (1.1-2.2); Alkaline Phosphatase 118 Units/L (34-104); Aspartate Amino Transferase 439 Units/L (13-39); BUN/Creatinine Ratio 9 (6-26); Bilirubin,Total 0.3 mg/dL (0.3-1.0); Blood Urea Nitrogen 16 mg/dL (8-23); Calcium 9.4 mg/dL (8.6-10.3); Carbon Dioxide 19 mEq/L (23-29); Chloride 96 mEq/L (98-107); Ethanol < 10 mg/dL (Less than 10); Globulin 2.1 g/dL (2.4-3.5); Glucose 431 mg/dL (70-105); Osmolality,Calculated 318 (280-300); Potassium 4.9 mEq/L (3.5-5.1); Sodium 144 mEq/L (136-145); Total Protein 5.5 g/dL (6.4-8.9); Troponin I 0.11 ng/mL (< 0.04); eGFR For African Americans 47 (> 60); eGFR For Non-African Americans 39 (> 60)
[2021-01-25] MEDS ORDERED: Norepinephrine 8 MG/508 ML IV.SOLN IVC SCH (19:53)
[2021-01-25 19:54] LABS: Amphetamine Screen,Urine Positive ng/mL (Cutoff=1000); Barbiturate Screen,Urine Negative ng/mL (Cutoff=200); Benzodiazepines Screen,Urine Negative ng/mL (Cutoff=200); Cannabinoid Screen,Urine Negative ng/mL (Cutoff = 50); Cocaine Screen,Urine Negative ng/mL (Cutoff= 300); Opiate Screen,Urine Negative ng/mL (Cutoff=300); Phencyclidine Screen,Urine Negative ng/mL (Cutoff=25)
[2021-01-25] MEDS ORDERED: EPINEPHrine 5 MG in D5% in Water 250 ML IVC SCH (20:00)
[2021-01-25 20:09] LABS: Alanine Aminotransferase 593 Units/L (7-52)
[2021-01-25] MEDS ORDERED: Piperacillin/Tazobactam 3.375 GM in 0.9 % Sodium Chloride Mini Bag 100 ML IVPB ONE (20:21)
[2021-01-25] MEDS ORDERED: *HR* EPINEPHrine 100 MCG/10 ML SYRINGE IVP ONE (20:24)
[2021-01-25] MEDS ORDERED: Phenylephrine 10 MG in 0.9 % Sodium Chloride 250 ML IVC SCH (20:34)
[2021-01-25] MEDS ORDERED: Piperacillin/Tazobactam 3.375 GM in Water for inj. (sterile) 20 ML IVP ONE (20:47)
[2021-01-25] MEDS ORDERED: Sodium Bicarbonate 150 MEQ in D5% in Water 1,000 ML IVC SCH ×2 (20:49→23:17)
[2021-01-25] MEDS ORDERED: Midazolam HCl 50 MG/100 ML IV.SOLN IVC SCH (21:00)
[2021-01-25] MEDS ORDERED: Vancomycin 2,000 MG/520 ML IV.SOLN IVPB ONE (21:00)
[2021-01-25] MEDS ORDERED: FentaNYL (PF) 1,000 MCG/100 ML IV.SOLN IVC SCH (21:00)
[2021-01-25 21:12] LABS: ABG Base Excess -13 mEq/L (-2 to 3); ABG HCO3 23 mEq/L (21-27); ABG Oxygen Saturation 73 % (95-98); ABG PCO2 123 mmHg (35-45); ABG PH 6.88 pH Units (7.32-7.45); ABG PO2 68 mmHg (85-104); ABG TCO2 27 mEq/L (20-26); Blood Gas VT 600 cc
[2021-01-25] MEDS ORDERED: Naloxone 0.4 MG/ML INJ IVP PRN (23:09)
[2021-01-25] MEDS ORDERED: Phenylephrine 50 MG in 0.9 % Sodium Chloride 250 ML IVC SCH (23:15)
[2021-01-25] MEDS ORDERED: Artificial Tears SOLN 15 ML BOTTLE BOTH EYES PRN (23:32)
[2021-01-25] MEDS: SODIUM CHLORIDE IVC SCH (23:32)
[2021-01-25] MEDS: NOREPINEPHRINE IVC SCH (23:32)
[2021-01-26] MEDS ORDERED: Hydrocortisone Sodium Succ 100 MG/2 ML VIAL IVP SCH
[2021-01-26] MEDS ORDERED: Piperacillin/Tazobactam 3.375 GM in 0.9 % Sodium Chloride Mini Bag 100 ML IVPB SCH
[2021-01-26] MEDS ORDERED: Artificial Tears SOLN 15 ML BOTTLE BOTH EYES SCH
[2021-01-26] MEDS: NOREPINEPHRINE IVC SCH (00:25)
[2021-01-26] MEDS: SODIUM CHLORIDE IVC SCH (00:25)
[2021-01-26 00:51] LABS: Hemoglobin 11.2 g/dL (12.9-16.9); Mean Corpuscular HGB Conc 29.5 g/dL (31.6-35.5); Mean Corpuscular Hemoglobin 29.2 pg (28.0-33.3); Mean Corpuscular Volume 99.2 fL (83.0-100.0); Platelet Count 164 K/mcL (140-400); Red Blood Count 3.83 M/mcL (4.19-5.50); Red Cell Distribution Width 14.2 % (11.5-14.5); White Blood Count 6.4 K/mcL (4.3-11.1)
[2021-01-26 00:58] LABS: INR 1.7; Prothrombin Time 19.3 Seconds (9.4-12.1)
[2021-01-26 01:07] VITALS: BP 44/23
[2021-01-26] MEDS ORDERED: *HR* Atropine Sulfate 1 MG/10 ML SYRINGE ONE (01:14)
[2021-01-26 01:40] LABS: Albumin 2.3 g/dL (3.5-5.7); Albumin/Globulin Ratio 1.5 (1.1-2.2); Bilirubin,Direct 0.1 mg/dL (0.0-0.2); Bilirubin,Indirect 0.3 mg/dL (0.0-1.0); Bilirubin,Total 0.4 mg/dL (0.3-1.0); Calcium 6.4 mg/dL (8.6-10.3); Globulin 1.5 g/dL (2.4-3.5); Magnesium 2.4 mg/dL (1.6-2.6); Phosphorous 11.7 mg/dL (2.7-4.5); Potassium 5.9 mEq/L (3.5-5.1); Total Protein 3.8 g/dL (6.4-8.9)
[2021-01-26] MEDS ORDERED: *HR* Atropine Sulfate 1 MG/10 ML SYRINGE IVP ONE (02:04)
[2021-01-26 02:51] LABS: Troponin I 0.24 ng/mL (< 0.04)
[2021-01-26] MEDS ORDERED: Pantoprazole 40 MG VIAL IVP SCH (09:00)
[2021-01-26] MEDS ORDERED: Chlorhexidine Rinse 15 ML MOUTHWASH MM SCH (09:00)
== END 2021-01-26 01:18 | disposition expired | DRG 296 ==
LOC: EDBD → EMEROOARM 18:46 → ICNU 21:55 → MERGE 21:55 → ICNU 21:59
PROVIDERS: ADMIT Student in an Organized Health Care Education/Training Program; ATTEND Student in an Organized Health Care Education/Training Program